=== PATIENT | female | born 1945 | race Caucasian/White ===

== ENCOUNTER 2017-08-20 15:18 | Inpatient (IN) | payer MEDICARE, BC ==
[~2017-08-20] VITALS: Ht 162.6 cm; Wt 61.9 kg
[2017-08-20] MEDS ORDERED: ATIVAN 0.50.5 MG/TAB PO (16:10)
[2017-08-20 16:40] LABS: BASO % 0.2 % (0.0-2.0); EOS # 0.1 (0.0-0.7); EOS % 0.6 % (0-4.0); GRAN # 8.4 (1.4-6.5); GRAN % 78.1 % (42.2-75.2); HEMOGLOBIN 12.7 g/dl (12.5-16.0); LYMPH # 1.3 (1.2-3.4); LYMPH % 12.1 % (20.0-51.0); MEAN CELL VOLUME 88 fl (80.0-100.0); MEAN CORPUSCULAR HEMOGLOBIN 31 pg (27.0-31.0); MEAN CORPUSCULAR HGB CONC 35 g/dl (33.0-37.0); MEAN PLATELET VOLUME 10.6 fl (7.4-10.4); MONO % 8.8 % (1.7-9.3); PLATELET COUNT 205 K/mm3 (130-400); RED BLOOD COUNT 4.08 M/mm3 (4.10-5.30); REDCELL DISTRIBUTION WIDTH-CV 12.6 % (11.5-14.5)
[2017-08-20 16:56] LABS: ALANINE AMINOTRANSFERASE 31 U/L (9-52); ALKALINE PHOSPHATASE 66 U/L (50-136); ANION GAP 11 mmol/L (7-16); AST,SGOT 30 U/L (15-37); BILIRUBIN,TOTAL 0.8 mg/dL (0.0-1.0); BLOOD UREA NITROGEN 15 mg/dL (7-17); CALCIUM 9.5 mg/dL (8.4-10.2); CARBON DIOXIDE 25 mmol/L (22-30); CHLORIDE 92 mmol/L (98-107); GLUCOSE 103 mg/dL (74-106); POTASSIUM 4.1 mmol/L (3.4-5.0); SODIUM 127 mmol/L (137-145); TOTAL PROTEIN 7.6 gm/dL (6.4-8.2)
[2017-08-20 16:57] LABS: C-REACTIVE PROTEIN < 0.5 mg/dL (0.0-0.9)
[2017-08-20 17:05] LABS: HEMATOCRIT 35.9 % (37.0-47.0)
[2017-08-20] MEDS ORDERED: COMBIGAN 0.2%-0.5 ML OD (17:18)
[2017-08-20 18:22] VITALS: BP 123/55; PULSE 80; TEMP 98.1
[2017-08-20 19:00] VITALS: BP 117/55; PULSE 65; TEMP 98.6
[2017-08-20 23:04] LABS: PH 6 (5-8); SQUAMOUS EPITHELIAL 0-2 /hpf; URINE APPEARANCE Clear; URINE BACTERIA None Seen /hpf; URINE BILIRUBIN Negative (NEGATIVE); URINE BLOOD 2+ (NEGATIVE); URINE COLOR Colorless; URINE GLUCOSE Negative (NEGATIVE); URINE KETONE Negative (NEGATIVE); URINE LEUKOCYTE ESTERASE Negative (NEGATIVE); URINE NITRATE Negative (NEGATIVE); URINE PROTEIN(semi-quant) Negative (NEGATIVE); URINE UROBILINOGEN Negative (NEGATIVE)
[2017-08-20 23:09] LABS: COLLECTION METHOD CLEAN CATCH
[2017-08-20 23:38] VITALS: BP 94/60; PULSE 65; TEMP 97.7
[2017-08-21 04:24] VITALS: BP 98/49; PULSE 64; TEMP 97.4
[2017-08-21 06:43] LABS: BASO % 0.3 % (0.0-2.0); EOS # 0.2 (0.0-0.7); EOS % 2.5 % (0-4.0); GRAN # 3.1 (1.4-6.5); GRAN % 50.7 % (42.2-75.2); HEMOGLOBIN 12.6 g/dl (12.5-16.0); LYMPH # 2.1 (1.2-3.4); LYMPH % 34.5 % (20.0-51.0); MEAN CORPUSCULAR HEMOGLOBIN 32 pg (27.0-31.0); MEAN CORPUSCULAR HGB CONC 34 g/dl (33.0-37.0); MONO # 0.7 (0.1-0.6); MONO % 11.7 % (1.7-9.3); PLATELET COUNT 201 K/mm3 (130-400); RED BLOOD COUNT 3.93 M/mm3 (4.10-5.30); REDCELL DISTRIBUTION WIDTH-CV 12.8 % (11.5-14.5)
[2017-08-21 06:48] LABS: HEMATOCRIT 36.8 % (37.0-47.0); MEAN CELL VOLUME 94 fl (80.0-100.0)
[2017-08-21 06:54] LABS: CALCIUM 8.8 mg/dL (8.4-10.2); CHOLESTEROL RISK RATIO 3.5; CREATININE, serum 0.71 mg/dL (0.52-1.25)
[2017-08-21 07:35] VITALS: BP 107/49; PULSE 66; TEMP 97.4
[2017-08-21 12:33] VITALS: BP 94/46; PULSE 66; TEMP 97.6
[2017-08-21 15:47] VITALS: BP 97/44; PULSE 62; TEMP 98.7
[2017-08-21 19:24] VITALS: BP 100/45; PULSE 76; TEMP 98.7
[2017-08-21 23:55] VITALS: BP 84/51; PULSE 65; TEMP 97.9
[2017-08-22 00:09] VITALS: BP 104/58
[2017-08-22 03:24] VITALS: BP 102/58; PULSE 61; TEMP 98.5
[2017-08-22 06:45] LABS: BASO % 0.3 % (0.0-2.0); EOS # 0.1 (0.0-0.7); EOS % 1.9 % (0-4.0); GRAN % 51.7 % (42.2-75.2); LYMPH # 1.9 (1.2-3.4); LYMPH % 33.2 % (20.0-51.0); MEAN CELL VOLUME 93 fl (80.0-100.0); MEAN CORPUSCULAR HGB CONC 34 g/dl (33.0-37.0); MEAN PLATELET VOLUME 11.3 fl (7.4-10.4); MONO # 0.7 (0.1-0.6); MONO % 12.7 % (1.7-9.3); PLATELET COUNT 168 K/mm3 (130-400); RED BLOOD COUNT 3.32 M/mm3 (4.10-5.30); REDCELL DISTRIBUTION WIDTH-CV 12.9 % (11.5-14.5)
[2017-08-22 06:48] LABS: CALCIUM 8.2 mg/dL (8.4-10.2); CREATININE, serum 0.59 mg/dL (0.52-1.25); POTASSIUM 3.3 mmol/L (3.4-5.0)
[2017-08-22 07:04] LABS: HEMATOCRIT 30.9 % (37.0-47.0); HEMOGLOBIN 10.6 g/dl (12.5-16.0); MEAN CORPUSCULAR HEMOGLOBIN 32 pg (27.0-31.0)
[2017-08-22 07:48] VITALS: BP 102/35; PULSE 55; TEMP 97.9
[2017-08-22] MEDS ORDERED: LIPITOR 40MG TA40 MG PO ×2 (13:22)
[2017-08-23 09:00] LABS: ANTI-THROMBIN III 89 % (72-128)
[2017-08-23 09:01] LABS: FACTOR II ACTIVITY 98 % (72-140); FACTOR V 79 % (50-150)
[2017-08-23 09:03] LABS: PROTEIN C ACTIVITY 106 % (70-150)
[2017-08-23 09:57] LABS: LUPUS ANTICOAGULANT PT 11.3 sec (())
== END 2017-08-22 15:53 | disposition home or self-care (01) | DRG 394 ==
LOC: COL.ER 15:18 → MEDICAL 17:28
PROVIDERS: Nurse Practitioner Family; Physician Assistant
DX: K55.039 Acute (reversible) ischemia of large intestine, extent unspecified (principal); E87.1 Hypo-osmolality and hyponatremia; K92.1 Melena; E87.6 Hypokalemia
CPT/HCPCS: 99222-AI; 99239; J1170; J2060; J2405; J2543; J7030; Q9967

== ENCOUNTER → 2017-09-09 | Outpatient (CLI) | payer MEDICARE, BC ==
[~2017-09-09] MED LIST: ATIVAN 0.50.5 MG/TAB PO; COMBIGAN 0.2%-0.5 ML OD; LIPITOR 40MG TA40 MG PO
== END ==
LOC: COL.RAD 10:25
DX: K55.9 Vascular disorder of intestine, unspecified (principal); Z90.49 Acquired absence of other specified parts of digestive tract
CPT/HCPCS: Q9967

== ENCOUNTER → 2018-02-03 | Outpatient (CLI) | payer MEDICARE, BC | LOC: MC.RAD 12:50 | DX: Z12.31 Encounter for screening mammogram for malignant neoplasm of breast (principal) ==

== ENCOUNTER → 2018-02-07 | Outpatient (CLI) | payer MEDICARE, BC | LOC: MC.RAD 12:53 | DX: N63.10 Unspecified lump in the right breast, unspecified quadrant (principal); R92.2 Inconclusive mammogram; Z98.82 Breast implant status | CPT/HCPCS: G0279 ==

== ENCOUNTER → 2019-02-20 | Outpatient (CLI) | payer MEDICARE, BC | LOC: MC.RAD 13:17 | DX: Z12.31 Encounter for screening mammogram for malignant neoplasm of breast (principal); Z98.82 Breast implant status ==

== ENCOUNTER → 2020-02-22 | Outpatient (CLI) | payer MEDICARE, BC | LOC: MC.RAD 13:45 | DX: Z12.31 Encounter for screening mammogram for malignant neoplasm of breast (principal) ==

== ENCOUNTER 2020-09-20 12:32 | Outpatient (CLI) | payer MEDICARE, BC ==
[~2020-09-20] VITALS: Ht 162.6 cm; Wt 65.3 kg
[2020-09-20 12:56] VITALS: BP 113/49; PULSE 65; TEMP 97.2
[2020-09-20] MEDS ORDERED: TRUSOPT OCUMETE10 ML PO (13:09)
[2020-09-20] MEDS ORDERED: PREMARIN 0.60.625 M1 PO (13:31)
[2020-09-20] MEDS ORDERED: PEPCID 20MG TAB20 MG PO (13:32)
[2020-09-20] MEDS ORDERED: RESTASIS MULTI5.5 ML OP (13:32)
[2020-09-20] MEDS ORDERED: IMODIUM 2MG CAPS2 MG PO (13:32)
[2020-09-20] MEDS ORDERED: PROBIOTIC FORMU1 CAP PO (13:33)
[2020-09-20] MEDS ORDERED: CENTRUM SILVER1 CTB PO (13:33)
[2020-09-20] MEDS ORDERED: DESOWEN0.051 TP (13:34)
[2020-09-20] MEDS ORDERED: OCEAN NASAL SPR45 ML NS (13:34)
--- NOTE | 2020-09-20 14:10 | NUR ---
Following IVF pt is able to ambulate from rm 13 to restroom and back into room with steady gait. She states she is feeling better overall, though still has some weakness. She states she feels ready to go home and rest. IV DC'd with catheter intact. She is assisted out to 's car by wheelchair.
== END 2020-09-20 14:18 | disposition home or self-care (01) ==
LOC: EUO 12:32
DX: K52.9 Noninfective gastroenteritis and colitis, unspecified (principal)
CPT/HCPCS: J7030

== ENCOUNTER → 2021-03-15 | Outpatient (CLI) | payer MEDICARE, BC ==
[~2021-03-15] MED LIST changes: +CENTRUM SILVER1 CTB PO; +DESOWEN0.051 TP; +IMODIUM 2MG CAPS2 MG PO; +OCEAN NASAL SPR45 ML NS; +PEPCID 20MG TAB20 MG PO; +PREMARIN 0.60.625 M1 PO; +PROBIOTIC FORMU1 CAP PO; +RESTASIS MULTI5.5 ML OP; +TRUSOPT OCUMETE10 ML PO
== END ==
LOC: MC.RAD 12:54
DX: Z12.31 Encounter for screening mammogram for malignant neoplasm of breast (principal)

== ENCOUNTER → 2022-06-05 | Outpatient (CLI) | payer MEDICARE, BC | LOC: MC.RAD 14:45 | DX: Z12.31 Encounter for screening mammogram for malignant neoplasm of breast (principal) ==

== ENCOUNTER 2023-05-06 15:08 | Outpatient (CLI) | payer MEDICARE, BC ==
[2023-05-06 15:30] VITALS: BP 127/91; PULSE 75; TEMP 98.2
[2023-05-06] MEDS ORDERED: NS 1,000 ML IV SCH (15:30)
--- NOTE | 2023-05-06 16:00 | NUR ---
Report to Memo Li.
--- NOTE | 2023-05-06 16:35 | NUR ---
Pt tolerated IVF without issue. IV DC'd, site wrapped with coban. Pt was assisted to restroom x1 during infusion. She is assisted out to 's car by wheelchair.
== END 2023-05-06 16:35 | disposition home or self-care (01) ==
LOC: EUO 15:08
DX: E86.0 Dehydration (principal)
CPT/HCPCS: J7030

== ENCOUNTER → 2023-08-23 | Outpatient (CLI) | payer MEDICARE, BC | LOC: MC.RAD 13:43 | DX: Z12.31 Encounter for screening mammogram for malignant neoplasm of breast (principal) ==

== ENCOUNTER 2024-01-07 17:27 | Inpatient (IN) | payer MEDICARE, BC ==
[~2024-01-07] VITALS: Ht 162.6 cm; Wt 64.8 kg
[~2024-01-07 17:27] MED LIST changes: -COMBIGAN 0.2%-0.5 ML OD; +COMBIGAN 0.2%-0.5 ML OU; +TRUSOPT OCUMETE10 ML OU; -TRUSOPT OCUMETE10 ML PO
[2024-01-07] MEDS ORDERED: NS 1,000 ML IV ONE ×2 (18:00→20:45)
[2024-01-07 18:15] LABS: BASO % 0.4 % (0.0-2.0); EOS % 0.5 % (0.0-4.0); GRAN # 4.7 K/mm3 (1.4-6.5); GRAN % 60.3 % (42.2-75.2); HEMATOCRIT 38.3 % (37.0-47.0); HEMOGLOBIN 13.6 g/dl (12.5-16.0); LYMPH # 2.2 K/mm3 (1.2-3.4); LYMPH % 28.7 % (20.0-51.0); MEAN CELL VOLUME 92 fl (80.0-100.0); MEAN CORPUSCULAR HEMOGLOBIN 33 pg (27-31); MEAN CORPUSCULAR HGB CONC 36 g/dl (33.0-37.0); MEAN PLATELET VOLUME 10.8 fl (7.4-10.4); MONO # 0.8 K/mm3 (0.1-0.6); MONO % 9.7 % (1.7-9.3); PLATELET COUNT 257 K/mm3 (130-400); RED BLOOD COUNT 4.15 M/mm3 (4.10-5.30); REDCELL DISTRIBUTION WIDTH-CV 13.7 % (11.5-14.5)
[2024-01-07 18:36] LABS: ALBUMIN 3.9 g/dL (3.4-4.8); BILIRUBIN,TOTAL 0.7 mg/dL (0.2-1.2); CALCIUM 9.5 mg/dL (8.4-10.2); CREATININE, serum 0.66 mg/dL (0.57-1.11); POTASSIUM 3.6 mEq/L (3.5-4.5); TOTAL PROTEIN 7.4 g/dl (6.2-8.1)
[2024-01-07 18:43] LABS: C-REACTIVE PROTEIN 0.05 mg/dL (0.00-0.50)
[2024-01-07 18:46] LABS: URINE APPEARANCE CLEAR (CLEAR/HAZY); URINE BLOOD 2+ (NEGATIVE); URINE COLOR YELLOW (YELLOW); URINE GLUCOSE NEGATIVE (NEGATIVE); URINE KETONE NEGATIVE (NEGATIVE); URINE NITRATE NEGATIVE (NEGATIVE); URINE PROTEIN(semi-quant) NEGATIVE (NEGATIVE); URINE UROBILINOGEN 0.2 E.U/dL (0.2-1.0)
[2024-01-07 19:29] LABS: COLLECTION METHOD CLEAN CATCH
[2024-01-07] MEDS ORDERED: FLORAJEN A20 Billion PO (22:18)
[2024-01-07] MEDS ORDERED: NS 1,000 ML IV SCH (22:45)
[2024-01-07] MEDS ORDERED: Ondansetron 4 MG/2 ML VIAL IV PRN (22:45)
[2024-01-07] MEDS ORDERED: Morphine 4 MG/ML VIAL IV PRN (23:00)
[2024-01-07] MEDS ORDERED: LORazepam 1 MG TAB PO SCH (23:08)
[2024-01-07] MEDS ORDERED: ATIVAN 0.50.5 MG/TAB PO (23:08)
[2024-01-07] MEDS ORDERED: ESTRACE0.1 MG/GM VG (23:12)
[2024-01-07 23:29] LABS: CALCIUM 9.1 mg/dL (8.4-10.2); CREATININE, serum 0.68 mg/dL (0.57-1.11); POTASSIUM 3.6 mEq/L (3.5-4.5)
[2024-01-08] VITALS (11 sets, daily range): BP systolic 94–126; BP diastolic 42–72; PULSE 63–74; TEMP 97.9–98.3
[2024-01-08] MEDS ORDERED: 1/2 NS 1,000 ML IV SCH (01:30)
--- NOTE | 2024-01-08 01:59 | NUR ---
Patient arrived to surgical unit from ER at approximately 0100. Contact plus isoloation initated, as stool sample is needed to rule out C-diff. Patient is aware. Alert and oriented, and able to make needs known. Denies having pain and discomfort at this time. Peripheral INT to right AC, IV fluids running to IV site on right wrist. Denies SOB and dyspnea. LS CTA. HRR. BSAx4. No BM so far. Aware that she is NPO. Voices no questions, needs, or concerns at this time. In bed with call light within reach. High fall risk precautions initiated. Bed alarm on.
--- NOTE | 2024-01-08 06:45 | NUR ---
awake resting in bed, bedside shift report received from CHELSIE Penn
[2024-01-08 06:54] LABS: BASO % 0.5 % (0.0-2.0); EOS % 0.6 % (0.0-4.0); GRAN # 3.6 K/mm3 (1.4-6.5); HEMOGLOBIN 12.3 g/dl (12.5-16.0); LYMPH # 2.1 K/mm3 (1.2-3.4); LYMPH % 32.1 % (20.0-51.0); MEAN CELL VOLUME 94 fl (80.0-100.0); MEAN CORPUSCULAR HEMOGLOBIN 34 pg (27-31); MEAN CORPUSCULAR HGB CONC 36 g/dl (33.0-37.0); MEAN PLATELET VOLUME 11.3 fl (7.4-10.4); MONO # 0.8 K/mm3 (0.1-0.6); MONO % 12.6 % (1.7-9.3); PLATELET COUNT 204 K/mm3 (130-400); RED BLOOD COUNT 3.61 M/mm3 (4.10-5.30); REDCELL DISTRIBUTION WIDTH-CV 14.6 % (11.5-14.5)
[2024-01-08 06:55] LABS: HEMATOCRIT 33.9 % (37.0-47.0)
[2024-01-08] MEDS ORDERED: LORazepam 0.5 MG TAB PO SCH (07:00)
--- NOTE | 2024-01-08 07:06 | NUR ---
Continues on IV fluids and ABX per orders. Reports she continues to feel fatigued. Has denied pain, discomfort, and nausea. Consults called to Dr. Sánchez and Dr. Castle. Patient has not had a BM since arriving to surgical unit. In bed with call light within reach. High fall risk precautions in place. Bed alarm on.
[2024-01-08 07:11] LABS: CALCIUM 8.5 mg/dL (8.4-10.2); CREATININE, serum 0.62 mg/dL (0.57-1.11); POTASSIUM 3.3 mEq/L (3.5-4.5)
--- NOTE | 2024-01-08 08:20 | NUR ---
resting in bed, denies needs at this time
[2024-01-08] MEDS ORDERED: Patient's Own Medication Item OP SCH ×2 (09:00)
--- NOTE | 2024-01-08 09:00 | NUR ---
physical therapy in to work with patient
--- NOTE | 2024-01-08 10:12 | NUR ---
sitting up in chair visiting with , full assessment completed, see interventions for further info, is frustrated and asking about going home, explained to her there wee 3 physicians yet to see her, verbalizes understanding, states only has minimal pain and has had no more diarrhea
--- NOTE | 2024-01-08 11:05 | NUR ---
Dr Simon and care team in to see patient, Dr Lozoya and Dr Sánchez still need to see patient
--- NOTE | 2024-01-08 12:22 | NUR ---
Dr Sánchez was in to see patient, now Dr Castle is in seeing her
--- NOTE | 2024-01-08 13:16 | NUR ---
bedside shift report given to CHELSIE Urban
--- NOTE | 2024-01-08 13:16 | NUR ---
SW met with patient to complete initial assessment for discharge planning. Patient verified that she lives outside [place] with her Anthony ([phone]) who is also her DPOA. Patient sees Dr. Flor as her PCP and [facility]. Patient states she has a cane and grab bars. Patient reports to be independent with ADLs and drives herself to appointments. Plan is to return home. Discharge plan: Home
--- NOTE | 2024-01-08 13:54 | NUR ---
Down to CT by wheelchair
[2024-01-08] MEDS ORDERED: Iohexol 300 - 100 ML VIAL IV ONE (13:58)
--- NOTE | 2024-01-08 18:00 | NUR ---
Patient sitting up in bed eating dinner. A&Ox4. VSS. IV CDI, fluids infusing. Denies pain and discomfort. Call light within reach
[2024-01-08] MEDS ORDERED: *Potassium Replacement Protocol MC SCH (18:45)
[2024-01-08] MEDS ORDERED: Potassium Bicarbonate/Citrate 20 MEQ Effervescent TAB PO SCH (18:45)
--- NOTE | 2024-01-08 21:44 | NUR ---
Patient assessed around 2024. Alert and oriented x 4. Does not always call for assistance. High fall risk precautions in place, bed alarm on. Denies having pain and discomfort, states she just continue to feel weak. Peripheral INT to right AC, and IV to right wrist with IV fluids and ABX running per orders. Denies SOB and dyspnea. LS CTA. HRR. BSAx4. No edema. Voices no questions, needs, or concerns at this time. In bed with call light within reach. Aware that she is NPO after midnight per Dr. Simon.
[2024-01-09 00:27] VITALS: BP_SYST 94
[2024-01-09 03:30] VITALS: BP 115/71; PULSE 75; TEMP 98
[2024-01-09 04:01] VITALS: BP_SYST 127
--- NOTE | 2024-01-09 05:25 | NUR ---
Continues on IV fluids and ABX per orders. Has denied having pain, discomfort, and nausea this shift. Has not had any BMs this shift. Patient NPO at this time. In bed with call light within reach. High fall risk precautions in place. Bed alarm on.
[2024-01-09 06:31] LABS: BASO % 0.5 % (0.0-2.0); EOS # 0.1 K/mm3 (0.0-0.7); EOS % 1.2 % (0.0-4.0); GRAN # 3.5 K/mm3 (1.4-6.5); GRAN % 53.7 % (42.2-75.2); HEMOGLOBIN 11.7 g/dl (12.5-16.0); LYMPH % 30.8 % (20.0-51.0); MEAN CELL VOLUME 93 fl (80.0-100.0); MEAN CORPUSCULAR HEMOGLOBIN 32 pg (27-31); MEAN CORPUSCULAR HGB CONC 35 g/dl (33.0-37.0); MEAN PLATELET VOLUME 11.2 fl (7.4-10.4); MONO # 0.9 K/mm3 (0.1-0.6); MONO % 13.6 % (1.7-9.3); PLATELET COUNT 211 K/mm3 (130-400); RED BLOOD COUNT 3.63 M/mm3 (4.10-5.30); REDCELL DISTRIBUTION WIDTH-CV 13.1 % (11.5-14.5)
[2024-01-09 06:36] LABS: HEMATOCRIT 33.8 % (37.0-47.0)
[2024-01-09 07:08] LABS: CALCIUM 8.5 mg/dL (8.4-10.2); CREATININE, serum 0.69 mg/dL (0.57-1.11); POTASSIUM 3.6 mEq/L (3.5-4.5)
[2024-01-09 07:27] VITALS: BP 143/79; PULSE 80; TEMP 98.2
--- NOTE | 2024-01-09 08:00 | NUR ---
Patient laying in bed, A&Ox4. VSS. IV CDI, fluids infusing. Denies pain and discomfort. NPO. No further needs expressed. Call light within reach. Bed alarm on
[2024-01-09] MEDS ORDERED: AMOXICILLIN 8751 TAB PO (09:18)
--- NOTE | 2024-01-09 10:24 | NUR ---
Discharge paperwork reviewed with the patient and . Patient verbalized an understanding to follow doctors orders. IV removed, tip intact. Gauze and coban applied. Patient taken by wheelchair to awaiting vehicle. No further needs expressed.
== END 2024-01-09 10:30 | disposition home or self-care (01) | DRG 394 ==
LOC: COL.ER 17:27 → SURG 23:25
PROVIDERS: Nurse Practitioner; Nurse Practitioner Family; ADMIT Internal Medicine
DX: K55.9 Vascular disorder of intestine, unspecified (principal); E87.1 Hypo-osmolality and hyponatremia; K92.1 Melena; N39.0 Urinary tract infection, site not specified; E87.20 Acidosis, unspecified; K21.9 Gastro-esophageal reflux disease without esophagitis; N20.0 Calculus of kidney; Z66 Do not resuscitate; H40.9 Unspecified glaucoma; K58.9 Irritable bowel syndrome, unspecified; E87.8 Other disorders of electrolyte and fluid balance, not elsewhere classified; E86.1 Hypovolemia; F41.9 Anxiety disorder, unspecified; Z90.49 Acquired absence of other specified parts of digestive tract; Z90.710 Acquired absence of both cervix and uterus; Z85.828 Personal history of other malignant neoplasm of skin; Z88.6 Allergy status to analgesic agent; Z88.1 Allergy status to other antibiotic agents; Z88.2 Allergy status to sulfonamides; Z88.8 Allergy status to other drugs, medicaments and biological substances; Z79.899 Other long term (current) drug therapy
CPT/HCPCS: J2543; J7030; Q9967